=== PATIENT | female | born 1965 | race Caucasian/White ===

== ENCOUNTER → 2020-01-11 | Outpatient (CLI) | payer BC ==
[~2020-01-11] MED LIST: DICYCLOMINE; DULERA; IOPAMIDOL 370 MG/ML 200 ML INFUS..BTL INJ ONE; LIBRAX CAPSULE1 EACH PO; MAXIDE; PRILOSEC40 MG PO; PROAIR HFA INH8.5 GM; SINGULAIR; SYMBICORT; TUDORZA PRESS400 MCG; XOPENEX; Z.0.FLONASE16 GM; [UNRECOGNIZED DRUG - OTHER]
[2020-01-11 15:53] LABS: BLOOD UREA NITROGEN 11 mg/dL (7-26); BUN/CREATININE RATIO 12 (6-25); CREATININE, SERUM 0.91 mg/dL (0.57-1.11); EST GLOMERULAR FILTRATION RATE > 60 ML/MIN (60-)
--- NOTE | 2020-01-11 16:44 | Diagnostic Imaging Report ---
EXAM: US ABDOMEN COMPLETE DATE: 01/11/2020 3:20 PM INDICATION: ^UPPER ABDOMINAL PAIN COMPARISON: CT dated 04/26/2019 TECHNIQUE: Transverse and longitudinal moreland scale and color doppler sonographic images of the abdomen were obtained. FINDINGS: LIVER 20.3 cm in the right midclavicular line. Liver is diffusely and severely echogenic, limiting evaluation. Negative for definite biliary dilatation. SPLEEN 12.9 cm in maximum diameter. Normal echogenicity, no masses. GALLBLADDER Surgically absent BILE DUCTS No intra nor extra-hepatic biliary dilation. Common bile duct measures 0.4cm PANCREAS: Visualized portions are normal. RIGHT KIDNEY: 10.3 cm Echogenicity: Normal Collecting System: No hydronephrosis Stones: None Cyst/Mass: None LEFT KIDNEY: 10.9 cm Echogenicity: Normal Collecting System: No hydronephrosis Stones: None Cyst/Mass: None VESSELS: Aorta: Visualized portions are within normal size limits Inferior Vena Cava: Visualized portions are normal Main Portal Vein: 0.9 cm, normal size with hepatopetal flow. FREE FLUID: None IMPRESSION: 1. Diffuse severe hepatic steatosis with hepatomegaly. The degree of alteration of echogenicity limits evaluation for underlying lesions. 2. Borderline splenomegaly. 3. Unremarkable ultrasound of the kidneys. Signed by: Johnathon Berumen MD on 01/11/2020 4:40 PM
--- NOTE | 2020-01-11 16:57 | Diagnostic Imaging Report ---
CT of the abdomen and pelvis with contrast TECHNIQUE: CT of the abdomen and pelvis WITH intravenous contrast and WITHOUT oral contrast. Dose modulation, iterative reconstruction, and/or weight-based adjustment of the mA/kV was utilized to reduce the radiation dose to as low as reasonably achievable. IV CONTRAST: 100 mL of Isovue-370 ORAL CONTRAST: None RADIATION DOSE: Total DLP: 897 mGy*cm COMPLICATIONS: None INDICATION: ^UPPER ABDOMIAL PAIN. COMPARISON: CT dated 04/26/2019. FINDINGS: LOWER THORAX: Unremarkable. HEPATOBILIARY: Diffuse hypoattenuation of the liver is noted. No focal suspicious hepatic lesion is noted. Gallbladder is surgically absent. No biliary ductal dilatation. SPLEEN: No splenomegaly. PANCREAS: No focal masses or ductal dilatation. ADRENALS: No adrenal nodules. KIDNEYS/URETERS: No hydronephrosis, stones, or masses. PELVIC ORGANS/BLADDER: Unremarkable. PERITONEUM/RETROPERITONEUM: No free air or fluid. LYMPH NODES: No lymphadenopathy. VESSELS: Unremarkable. GI TRACT: Limited due to lack of oral contrast. Stomach and portions of the colon are decompressed limiting evaluation. Small hiatal hernia is noted. A few diverticula are identified within the sigmoid colon without surrounding inflammatory changes. Negative for bowel obstruction. Fluid-filled ascending colon and cecum are noted, nonspecific. There are also a few fluid-filled small bowel loops in the right lower quadrant. BONES AND SOFT TISSUES: Negative for acute osseous abnormality. Focal moderate degenerative changes noted at L5-S1 with posterior disc bulge and facet arthropathy causing left greater than right neural foraminal stenosis. No suspicious lytic or blastic lesion is identified. Soft tissues are unremarkable. IMPRESSION: 1. Diffuse hepatic steatosis, similarly noted on ultrasound performed the same day. Negative for biliary dilatation. Postsurgical changes from cholecystectomy are noted. 2. Fluid within the ascending colon and cecum is nonspecific however can be seen in patients with infectious or inflammatory colitis. Correlate with patient's symptoms. 3. Uncomplicated colonic diverticulosis. Signed by: Johnathon Berumen MD on 01/11/2020 4:54 PM
== END ==
LOC: US 14:27
PROVIDERS: ATTEND Internal Medicine Gastroenterology
DX: R10.10 Upper abdominal pain, unspecified (principal); R94.5 Abnormal results of liver function studies
CPT/HCPCS: 36415; 74177; 76700; 82565; 84520; Q9967

== ENCOUNTER → 2020-02-28 | Day surgery (SDC) | payer BC ==
[2020-02-23 16:29] LABS: BASOPHILS # (AUTO) 0.1 (0.0-0.1); BASOPHILS % 0.4 % (0.0-1.0); EOSINOPHILS # (AUTO) 0.1 (0.0-0.4); EOSINOPHILS % 0.5 % (0.0-6.0); HEMATOCRIT 37.2 % (34.2-44.1); HEMOGLOBIN 11.9 g/dL (12.0-16.0); LYMPHOCYTES % 39.5 % (18.0-39.1); MEAN CORPUSCULAR HEMOGLOBIN 27.9 pg (28-32); MEAN CORPUSCULAR VOLUME 87.3 fL (81-99); MONOCYTES # (AUTO) 1.1 (0.2-0.8); MONOCYTES % 6.3 % (4.4-11.3); NEUTROPHILS # (AUTO) 9.3 (2.1-6.9); NEUTROPHILS % 52.5 % (38.7-80.0); PLATELET COUNT 235 x10e3/uL (140-360); RED BLOOD COUNT 4.26 x10e6/uL (3.6-5.1); RED CELL DISTRIBUTION WIDTH 14.9 % (11.7-14.4)
[~2020-02-28] MED LIST changes: +AZITHROMYCIN500 MG PO; +BREZTRI AEROS10.7 GM INH; +FAMOTIDINE20 MG PO; +FENTANYL CITRATE/PF 100MCG/2 ML INJ ONE; +HEPARIN 500 UNITS/5ML MDV INJ ONE; +HYOSCYAMINE 0.125 MG TAB ONE; -IOPAMIDOL 370 MG/ML 200 ML INFUS..BTL INJ ONE; +KETAMINE HCL INJ 50 MG/ML 10 ML VIAL ONE; +LIDOCAINE HCL 2% LOCAL INJ 5 ML SDV VIAL INJ ONE; +LINZESS145 MCG PO; +METFORMIN HCL500 M2 PO; +METOCLOPRAMIDE HCL 10 MG/2ML VIAL ONE; +MIDAZOLAM HCL 2 MG/2 ML VIAL ONE; +OMEGA 3 FISH O1 EACH PO; +PANTOPRAZOLE SO40 MG PO; +PREDNISONE20 MG PO; +PROAIR HFA INH8.5 GM INH; +PROPOFOL IV EMULSION 10 MG/ML 20 ML VIAL ONE; +SINGULAIR10 MG PO; +VITAMIN C500 M6 PO; +VITAMIN D250 MCG PO; +XYZAL5 MG PO; +ZOLOFT50 MG PO
[2020-02-28 09:50] VITALS: BP 145/81
--- NOTE | 2020-02-28 11:05 | Operative Report ---
DATE OF PROCEDURE: 02/28/2020 SURGEON: Kt Casas MD PROCEDURE: Colonoscopy with polypectomy. INDICATIONS FOR COLONOSCOPY: Surveillance colonoscopy, personal history of colon polyps. MEDICATIONS: The patient was done under MAC, please see anesthesiologist's note. PROCEDURE IN DETAIL: With the patient in left lateral decubitus position, a flexible fiberoptic Olympus colonoscope was inserted into the rectum with ease and advanced all the way to the cecum. An approximately 5 mm sessile polyp was noted in the cecum that was removed per cold snare polypectomy. The ileocecal valve was intubated and the scope was advanced into the terminal ileum. Biopsies were obtained. The scope was then withdrawn back into the colon. It was then withdrawn slowly. Mucosa overlying appeared to be within normal limits. Approximately 4 mm sessile polyp was hot snared from the descending colon and a minute polyp was hot biopsied from the sigmoid colon. The rectum grossly appeared to be within normal limits. The scope was then retroflexed into the distal rectum and moderate-sized internal hemorrhoids were noted, none of which was actively bleeding. The scope was then straightened out, it was subsequently withdrawn. The patient tolerated the procedure well. IMPRESSION: 1. Cecal polyp approximately 5 mm sessile cold snared. 2. Descending colon polyp hot snared. 3. Sigmoid colon polyp, hot biopsied. 4. Internal hemorrhoids none actively bleeding. PLAN: Follow up histology. Initiate high-fiber, low-fat diet. Initiate high-fiber supplement. The patient might benefit from a small bowel series as sister recently was diagnosed with small bowel cancer. The patient might benefit from a followup colonoscopy in 3 years. Kt Casas MD [facility] [place] /[id number]
== END | disposition home or self-care (01) ==
LOC: OR 05:59
PROVIDERS: ATTEND Internal Medicine Gastroenterology
DX: K59.00 Constipation, unspecified (principal); D12.0 Benign neoplasm of cecum; D12.4 Benign neoplasm of descending colon; D12.5 Benign neoplasm of sigmoid colon; E66.01 Morbid (severe) obesity due to excess calories; K58.9 Irritable bowel syndrome, unspecified; K64.8 Other hemorrhoids; K21.9 Gastro-esophageal reflux disease without esophagitis; K44.9 Diaphragmatic hernia without obstruction or gangrene; E11.9 Type 2 diabetes mellitus without complications; J45.909 Unspecified asthma, uncomplicated; G47.33 Obstructive sleep apnea (adult) (pediatric); Z91.018 Allergy to other foods; Z01.810 Encounter for preprocedural cardiovascular examination; Z01.812 Encounter for preprocedural laboratory examination; Z20.828 Contact with and (suspected) exposure to other viral communicable diseases; Z79.84 Long term (current) use of oral hypoglycemic drugs
CPT/HCPCS: 36415 ×2; 45384; 45385; 82948; 85025; 93005; J2001; J2250; J2704; J2765; J3010; U0002; 45378; 45380

== ENCOUNTER → 2021-06-09 | Day surgery (SDC) | payer BC ==
[~2021-06-09] MED LIST changes: +AMLODIPINE BESY10 MG PO; +BUPROPION XL150 MG PO; +BUSPAR PO; +CRESTOR5 MG PO; +CUVITRU IV; +FUROSEMIDE40 MG PO; -HEPARIN 500 UNITS/5ML MDV INJ ONE; -HYOSCYAMINE 0.125 MG TAB ONE; +HYOSCYAMINE SULFATE 0.5 MG/ML INJ ONE; -KETAMINE HCL INJ 50 MG/ML 10 ML VIAL ONE; -METOCLOPRAMIDE HCL 10 MG/2ML VIAL ONE; +NUCALA100 MG INJ; +POVIDONE IODINE 0.05% 0.05 % ML PO ONE; +WEGOVY2.4 MG/0.7 SC
[2021-06-09 12:50] VITALS: BP 134/77
== END | disposition home or self-care (01) ==
LOC: OR 10:17
PROVIDERS: ATTEND Internal Medicine Gastroenterology
DX: Z12.11 Encounter for screening for malignant neoplasm of colon (principal); D12.0 Benign neoplasm of cecum; D12.4 Benign neoplasm of descending colon; K59.09 Other constipation; K57.30 Diverticulosis of large intestine without perforation or abscess without bleeding; K64.8 Other hemorrhoids; K21.9 Gastro-esophageal reflux disease without esophagitis; Z90.49 Acquired absence of other specified parts of digestive tract; Z71.3 Dietary counseling and surveillance; G47.33 Obstructive sleep apnea (adult) (pediatric); J45.909 Unspecified asthma, uncomplicated; I10 Essential (primary) hypertension; E78.5 Hyperlipidemia, unspecified; E11.9 Type 2 diabetes mellitus without complications; E66.01 Morbid (severe) obesity due to excess calories; F32.A Depression, unspecified; Z01.810 Encounter for preprocedural cardiovascular examination; Z01.812 Encounter for preprocedural laboratory examination; Z20.822 Contact with and (suspected) exposure to COVID-19; Z79.899 Other long term (current) drug therapy; Z68.42 Body mass index [BMI] 45.0-49.9, adult; Z80.0 Family history of malignant neoplasm of digestive organs
CPT/HCPCS: 36415; 45380; 82948; 93005; J1980; J2001; J2250; J2704; J3010; U0002; 45378

== ENCOUNTER 2022-01-12 20:48 | Emergency (ER) | payer BC ==
[~2022-01-12] VITALS: Ht 165.1 cm; Wt 121.6 kg
[~2022-01-12 20:48] MED LIST changes: -FENTANYL CITRATE/PF 100MCG/2 ML INJ ONE; -HYOSCYAMINE SULFATE 0.5 MG/ML INJ ONE; -LIDOCAINE HCL 2% LOCAL INJ 5 ML SDV VIAL INJ ONE; -MIDAZOLAM HCL 2 MG/2 ML VIAL ONE; -POVIDONE IODINE 0.05% 0.05 % ML PO ONE; -PROPOFOL IV EMULSION 10 MG/ML 20 ML VIAL ONE
[2022-01-12] MEDS ORDERED: ALBUTEROL/IPRATROPIUM 3 ML NEB NEB ONE (21:15)
[2022-01-12 21:34] LABS: STREPTOCOCCUS GRP A ANTIGEN NEGATIVE (NEGATIVE)
[2022-01-12 21:51] LABS: RESPIRATORY SYNC. VIRUS NEGATIVE (NEGATIVE)
[2022-01-12 22:32] VITALS: BP 125/70
== END 2022-01-12 22:36 | disposition home or self-care (01) ==
LOC: ER 20:59
DX: R05.9 Cough, unspecified (principal); J30.2 Other seasonal allergic rhinitis; Z20.822 Contact with and (suspected) exposure to COVID-19; E11.9 Type 2 diabetes mellitus without complications
CPT/HCPCS: 71046; 83518; 87070; 87400; 87420; 94640; 94799; 99283; U0002

== ENCOUNTER → 2024-05-26 | Day surgery (SDC) | payer BC ==
[2024-05-19 14:48] LABS: BASOPHILS % 0.2 % (0.0-1.0); EOSINOPHILS # (AUTO) 0.1 (0.0-0.4); EOSINOPHILS % 0.7 % (0.0-6.0); HEMATOCRIT 36.8 % (34.2-44.1); HEMOGLOBIN 12.1 g/dL (12.0-16.0); LYMPHOCYTES # (AUTO) 4.2 (1.0-3.2); LYMPHOCYTES % 31.7 % (18.0-39.1); MEAN CORPUSCULAR HEMOGLOBIN 28.8 pg (28-32); MEAN CORPUSCULAR HGB CONC 32.9 g/dL (31-35); MEAN CORPUSCULAR VOLUME 87.6 fL (81-99); MONOCYTES # (AUTO) 0.7 (0.2-0.8); MONOCYTES % 5.2 % (4.4-11.3); NEUTROPHILS # (AUTO) 8.1 (2.1-6.9); PLATELET COUNT 227 x10e3/uL (140-360); RED CELL DISTRIBUTION WIDTH 13.6 % (11.7-14.4); WHITE BLOOD COUNT 13.14 x10e3/uL (4.8-10.8)
[~2024-05-26] MED LIST changes: +AZITHROMYCIN250 MG PO; +CUVITRU; +DEXMEDETOMIDINE HCL 2 ML ONE; +DUONEB INH; +FENTANYL CITRATE/PF 100MCG/2 ML INJ ONE; +LIDOCAINE HCL 2% LOCAL INJ 5 ML SDV VIAL INJ ONE; +LIPO; +MIDAZOLAM HCL 2 MG/2 ML VIAL ONE; +MONTELUKAST SOD10 MG PO; +PATADAY2.5 ML OP; +PHENTERMINE H37.5 MG PO; +PROPOFOL IV EMULSION 10 MG/ML 20 ML VIAL ONE; +PROPOFOL IV EMULSION 50 ML IV ONE; +SODIUM CHLORIDE 0.9% 100 ML ONE; +TEZSPIRE210 MG/1.1 SQ; +TRULANCE3 MG PO; +VITAMIN B-121000 MC2 PO; +[UNRECOGNIZED DRUG - OTHER] PO; +[UNRECOGNIZED DRUG - OTHER] PO
[2024-05-26] MEDS: LACTATED RINGER'S 1,000 ML ONE (08:27)
[2024-05-26 09:47] VITALS: TEMP 97.8
[2024-05-26 10:00] VITALS: BP 130/72; PULSE 79; RESP 16; O2SAT 96
[2024-05-26] MEDS: HEPARIN 500 UNITS/5ML MDV INJ ONE (10:13)
== END | disposition home or self-care (01) ==
LOC: OR 07:57
PROVIDERS: ATTEND Internal Medicine Gastroenterology
DX: Z12.11 Encounter for screening for malignant neoplasm of colon (principal); D12.4 Benign neoplasm of descending colon; K57.30 Diverticulosis of large intestine without perforation or abscess without bleeding; K58.9 Irritable bowel syndrome, unspecified; K64.8 Other hemorrhoids; K44.9 Diaphragmatic hernia without obstruction or gangrene; K21.9 Gastro-esophageal reflux disease without esophagitis; D64.9 Anemia, unspecified; G47.33 Obstructive sleep apnea (adult) (pediatric); J45.909 Unspecified asthma, uncomplicated; E11.9 Type 2 diabetes mellitus without complications; E66.01 Morbid (severe) obesity due to excess calories; Z01.810 Encounter for preprocedural cardiovascular examination; Z01.812 Encounter for preprocedural laboratory examination; Z79.899 Other long term (current) drug therapy; Z80.0 Family history of malignant neoplasm of digestive organs
CPT/HCPCS: 36415; 45385; 85025; 93005; J2003; J2250; J2704 ×2; J3010; J7050; J7121; 45378

== ENCOUNTER → 2024-06-27 | Outpatient (REF) | payer BC ==
[~2024-06-27] MED LIST changes: -DEXMEDETOMIDINE HCL 2 ML ONE; -FENTANYL CITRATE/PF 100MCG/2 ML INJ ONE; -LIDOCAINE HCL 2% LOCAL INJ 5 ML SDV VIAL INJ ONE; -MIDAZOLAM HCL 2 MG/2 ML VIAL ONE; -PROPOFOL IV EMULSION 10 MG/ML 20 ML VIAL ONE; -PROPOFOL IV EMULSION 50 ML IV ONE; -SODIUM CHLORIDE 0.9% 100 ML ONE
== END ==
LOC: DX 08:35
PROVIDERS: ATTEND Nurse Practitioner
DX: D64.89 Other specified anemias (principal)
CPT/HCPCS: 74250